=== PATIENT | female | born 1970 | race Caucasian/White ===

== ENCOUNTER 2016-09-21 10:49 | Emergency (ER) | payer OTHER ==
[~2016-09-21] VITALS: Ht 165.1 cm; Wt 63.5 kg
[2016-09-21] MEDS ORDERED: IV NORMAL SALINE 1000ML BAG 1,000 ML IV SCH (12:44)
[2016-09-21] MEDS ORDERED: FENTANYL PF 100 MCG/2 ML VIAL. IV PRN (12:45)
[2016-09-21] MEDS ORDERED: ONDANSETRON PF 4 MG/2 ML VIAL. IV ONE (12:45)
--- NOTE | 2016-09-21 12:50 | PHYS DOC ---
Past Medical History Past Medical History: Asthma, Constipation, Hypertension, [place], Other Additional Past Medical Histor: MS,LUPUS Past Surgical History: Cholecystectomy, Other Additional Past Surgical Histo: UTEERINE ABLATION Additional Information: 0.25 PPD Alcohol Use: Rarely Drug Use: None Adult General Chief Complaint Chief Complaint: CONSTIPATION HPI HPI Patient is a 45 year old female who presents with complaint of left-sided abdominal pain. Patient states that her pain has been present intermittently over the past 2 weeks, however over the past 2-3 days her symptoms have been worsening. Patient is also noticed low back pain associated with her symptoms. Patient currently states her pain is 8 out of 10. The patient states that she has a history of constipation and has had similar episodes in the past, however she has not had associated back pain with her symptoms until now. Patient also states that she has history of hypertension and states that she was recently diagnosed with lupus. Patient has followed with rheumatology at and states that currently they are doing additional testing before starting any treatment. Patient denies any associated fever, shortness of breath, or bloody stools with her current symptoms. Patient does have nausea. Patient has not taken any medications to help with symptoms currently. Review of Systems Review of Systems Constitutional: Denies fever or chills [] Eyes: Denies change in visual acuity, redness, or eye pain [] HENT: Denies nasal congestion or sore throat [] Respiratory: Denies cough or shortness of breath [] Cardiovascular: No additional information not addressed in HPI [] GI: Abdominal pain, nausea, denies vomiting, bloody stools or diarrhea [] : Denies dysuria or hematuria [] Musculoskeletal: Back pain [] Integument: Denies rash or skin lesions [] Neurologic: Denies headache, focal weakness or sensory changes [] Current Medications Current Medications Current Medications Medications (Trade) Dose Ordered Sig/Edmund Start Time Stop Time Status Last Admin Dose Admin Fentanyl Citrate 50 mcg 50 mcg PRN Q15MIN PRN 09/21/16 12:45 09/22/16 12:44 09/21/16 13:14 50 MCG Info (Do NOT chart on this entry -- for MONITORING) 1 each PRN DAILY PRN 09/21/16 13:15 09/23/16 13:14 Iohexol (Omnipaque 300 Mg/ml) 75 ml 1X ONCE 09/21/16 13:15 09/21/16 13:16 DC 09/21/16 13:31 75 ML Ondansetron HCl (Zofran) 4 mg 1X ONCE 09/21/16 12:45 09/21/16 12:48 DC 09/21/16 13:14 4 MG Sodium Chloride (Iv Sodium Chloride 0.9% 1000ml Bag) 1,000 ml @ 1,000 mls/hr Q1H 09/21/16 12:44 09/21/16 13:43 DC 09/21/16 13:12 1,000 MLS/HR Allergies Allergies Allergies Coded Allergies Type Severity Reaction Last Updated Verified morphine Allergy Mild RASH,ITCHES 09/21/16 Yes Physical Exam Physical Exam Constitutional: Alert, afebrile, appears in mild to moderate discomfort [] HENT: Normocephalic, atraumatic, bilateral external ears normal, oropharynx moist, no oral exudates, nose normal. [] Eyes: PERRLA, EOMI, conjunctiva normal, no discharge. [] Neck: Normal range of motion, no tenderness, supple, no stridor. [] Cardiovascular:Heart rate regular rhythm, no murmur [] Lungs & Thorax: Bilateral breath sounds clear to auscultation [] Abdomen: Bowel sounds normal, soft, left upper and lower quadrant tenderness to palpation with guarding, no rebound tenderness, no masses, no pulsatile masses. [] Skin: Warm, dry, no erythema, no rash. [] Back: Bilateral lower lumbar paraspinous muscle tenderness to palpation, no midline tenderness, no CVA tenderness. [] Extremities: No tenderness, no cyanosis, no clubbing, ROM intact, no edema. [] Neurologic: Alert and oriented X 3, normal motor function, normal sensory function, no focal deficits noted. [] Current Patient Data Vital Signs Vital Signs Date Time Temp Pulse Resp B/P Pulse Ox O2 Delivery O2 Flow Rate FiO2 09/21/16 13:14 14 100 Room Air 09/21/16 13:09 178/104 09/21/16 12:24 72 09/21/16 11:58 98 98.0 Lab Values Laboratory Tests Test 09/21/16 13:00 09/21/16 13:11 White Blood Count 12.0x10^3/uL (4.0-11.0) H Red Blood Count 4.95x10^6/uL (3.50-5.40) Hemoglobin 14.8g/dL (12.0-15.5) Hematocrit 45.3% (36.0-47.0) Mean Corpuscular Volume 92fL (79-100) Mean Corpuscular Hemoglobin 30pg (25-35) Mean Corpuscular Hemoglobin Concent 33g/dL (31-37) Red Cell Distribution Width 13.2% (11.5-14.5) Platelet Count 109x10^3/uL (140-400) L Neutrophils (%) (Auto) 65% (31-73) Lymphocytes (%) (Auto) 23% (24-48) L Monocytes (%) (Auto) 8% (0-9) Eosinophils (%) (Auto) 3% (0-3) Basophils (%) (Auto) 1% (0-3) Neutrophils # (Auto) 7.8x10^3uL (1.8-7.7) H Lymphocytes # (Auto) 2.8x10^3/uL (1.0-4.8) Monocytes # (Auto) 1.0x10^3/uL (0.0-1.1) Eosinophils # (Auto) 0.3x10^3/uL (0.0-0.7) Basophils # (Auto) 0.1x10^3/uL (0.0-0.2) Sodium Level 141mmol/L (136-145) Potassium Level 4.0mmol/L (3.5-5.1) Chloride Level 104mmol/L (98-107) Carbon Dioxide Level 27mmol/L (21-32) Anion Gap 10 (6-14) Blood Urea Nitrogen 11mg/dL (7-20) Creatinine 0.8mg/dL (0.6-1.0) Estimated GFR (Cockcroft-Gault) 77.6 BUN/Creatinine Ratio 14 (6-20) Glucose Level 92mg/dL (70-99) Calcium Level 9.2mg/dL (8.5-10.1) Total Bilirubin 0.1mg/dL (0.2-1.0) L Aspartate Amino Transferase (AST) 15U/L (15-37) Alanine Aminotransferase (ALT) 16U/L (14-59) Alkaline Phosphatase 99U/L (46-116) Total Protein 7.5g/dL (6.4-8.2) Albumin 3.8g/dL (3.4-5.0) Albumin/Globulin Ratio 1.0 (1.0-1.7) Lipase 219U/L (73-393) Urine Collection Type Void Urine Color Yellow Urine Clarity Cloudy Urine pH 6.0 Urine Specific [place] 1.025 Urine Protein Negativemg/dL (NEG-TRACE) Urine Glucose (UA) Negativemg/dL (NEG) Urine Ketones (Stick) Negativemg/dL (NEG) Urine Blood Small (NEG) Urine Nitrite Negative (NEG) Urine Bilirubin Negative (NEG) Urine Urobilinogen Dipstick 1.0mg/dL (0.2 mg/dL) Urine Leukocyte Esterase Negative (NEG) Urine RBC 3-5/HPF (0-2) Urine WBC 1-4/HPF (0-4) Urine Squamous Epithelial Cells Many/LPF Urine Bacteria Many/HPF (0-FEW) Urine Mucus Marked/LPF Laboratory Tests 09/21/16 13:00 Laboratory Tests 09/21/16 13:00 EKG EKG Not performed [] Radiology/Procedures Radiology/Procedures [facility] [address] [place] [address] IMAGING REPORT Signed PATIENT: JUAN PABLO WINKLER ACCOUNT: [id number] : 1970 LOCATION: ER AGE: 45 SEX: F EXAM STATUS: REG ER ORD. PHYSICIAN: SUBHASH COLES MD REASON: left lower quadrant abdominal pain PROCEDURE: ABD PELV W/ IV CONTRAST ONLY EXAM: CT abdomen/pelvis with contrast. HISTORY: Left lower quadrant pain and nausea. TECHNIQUE: Computed tomography of the abdomen and pelvis was performed after the intravenous administration of 75 mL Omnipaque 300. COMPARISON: 12/16/2012. FINDINGS: Lung windows through the visualized portions of the bases reveal mild atelectasis. Bone windows reveal subacute left anteroinferior rib fractures. There are no suspicious lesions. The common duct is mildly dilated at 8 mm. There is no clear distal obstructing lesion. The gallbladder is surgically absent. The pancreas and pancreatic duct are unremarkable. The liver, spleen, adrenal glands and left kidney are unremarkable. There are small cysts in the right kidney. There are no pathologically enlarged lymph nodes. Stool throughout the colon is consistent with constipation. The appendix is not inflamed. There is no obstruction. Bilateral ovarian follicles measuring up to 2.7 cm on the right. IMPRESSION: 1. Stool throughout the colon is consistent with constipation. 2. Subacute left anteroinferior rib fractures. 3. Mild extrahepatic biliary dilatation status post cholecystectomy. Correlate for cholestasis to assess significance. *One or more of the following individualized dose reduction techniques were utilized for this examination: 1. Automated exposure control. 2. Adjustment of the mA and/or kV according to patient size. 3. Use of iterative reconstruction technique. DICTATED and SIGNED BY: SERGIO HUBER MD DATE: 09/21/16 [id number] CC: SUBHASH COLES MD; REINA AMBROSIO APRN ~ [] Course & Med Decision Making Course & Med Decision Making Pertinent Labs and Imaging studies reviewed. (See chart for details) Patient was treated with IV fluids, Zofran, fentanyl. Patient's CT scan did not reveal an acute surgical process causing the patient's abdominal pain but did show a moderate amount of retained stool in colon. The scan did show evidence of left-sided bebo-inferior rib fractures. Patient states that she fell 3 months ago and likely suffered the injury at that time. Patient denies any recent falls. Patient received a milk and molasses enema in the emergency department with partial return of stool. Patient states that she feels better at this time and would like to go home. The patient states that she will start on MiraLAX therapy at home and I recommended that patient attempt Fleet enemas as needed at home to help improve with stool output. The patient will be referred to Dr. Earl for follow-up in one week. Advised return emergency department for any worsening symptoms. Patient voiced understanding and in agreement with treatment plan. Dragon Disclaimer Dragon Disclaimer This electronic medical record was generated, in whole or in part, using a voice recognition dictation system. Departure Departure Impression: Primary Impression: Constipation Additional Impression: Abdominal pain Disposition: HOME, SELF-CARE Condition: IMPROVED Referrals: REINA AMBROSIO APRN (PCP) JANNY EARL MD Patient Instructions: Abdominal Pain (Nonspecific), Constipation, Adult Additional Instructions: Follow-up in one week with Dr. Earl. You may use [id number] Tylenol and ibuprofen as needed for symptoms. You may also use Fleet enemas available for purchase [id number] to use as instructed on packaging for treatment of constipation. Continue with a liquid diet at this time until your stool output has improved. Return to the emergency department for any worsening symptoms. Problem Qualifiers Primary Impression: Constipation Constipation type: unspecified constipation type Qualified Code: K59.00 - Constipation, unspecified Additional Impression: Abdominal pain Abdominal location: left lower quadrant Qualified Code: R10.32 - Left lower quadrant pain SUBHASH COLES MD Sep 21, 2016 12:50
[2016-09-21 13:15] LABS: BASO # 0.1 x10^3/uL (0.0-0.2); BASO % 1 % (0-3); EOS % 3 % (0-3); HEMATOCRIT 45.3 % (36.0-47.0); HEMOGLOBIN 14.8 g/dL (12.0-15.5); LYMPH # 2.8 x10^3/uL (1.0-4.8); LYMPH % 23 % (24-48); MEAN CORPUSCULAR HEMOGLOBIN 30 pg (25-35); MEAN CORPUSCULAR HGB CONC 33 g/dL (31-37); MEAN CORPUSCULAR VOLUME 92 fL (79-100); MONO % 8 % (0-9); NEUT % 65 % (31-73); PLATELET COUNT 109 x10^3/uL (140-400); RED BLOOD COUNT 4.95 x10^6/uL (3.50-5.40); RED CELL DISTRIBUTION WIDTH 13.2 % (11.5-14.5)
[2016-09-21] MEDS ORDERED: CONTRAST GIVEN MC PRN (13:15)
[2016-09-21] MEDS ORDERED: IOHEXOL 300 MG/ML 75 ML VIAL IV ONE (13:15)
[2016-09-21 13:23] LABS: BILIRUBIN,URINE NEGATIVE (NEG); GLUCOSE,URINE NEGATIVE (NEG); NITRITE,URINE NEGATIVE (NEG); PROTEIN,URINE NEGATIVE (NEG-TRACE)
[2016-09-21 13:25] LABS: CALCIUM 9.2 mg/dL (8.5-10.1); CREATININE 0.8 mg/dL (0.6-1.0); GFR 77.6
[2016-09-21 13:30] LABS: ALBUMIN 3.8 g/dL (3.4-5.0); TOTAL BILIRUBIN 0.1 mg/dL (0.2-1.0); TOTAL PROTEIN 7.5 g/dL (6.4-8.2)
[2016-09-21 13:33] LABS: BACTERIA,URINE MANY /HPF (0-FEW); SQUAMOUS EPITHELIAL CELL,UR MANY /LPF
--- NOTE | 2016-09-21 14:06 | RAD ---
EXAM: CT abdomen/pelvis with contrast. HISTORY: Left lower quadrant pain and nausea. TECHNIQUE: Computed tomography of the abdomen and pelvis was performed after the intravenous administration of 75 mL Omnipaque 300. COMPARISON: 12/16/2012. FINDINGS: Lung windows through the visualized portions of the bases reveal mild atelectasis. Bone windows reveal subacute left anteroinferior rib fractures. There are no suspicious lesions. The common duct is mildly dilated at 8 mm. There is no clear distal obstructing lesion. The gallbladder is surgically absent. The pancreas and pancreatic duct are unremarkable. The liver, spleen, adrenal glands and left kidney are unremarkable. There are small cysts in the right kidney. There are no pathologically enlarged lymph nodes. Stool throughout the colon is consistent with constipation. The appendix is not inflamed. There is no obstruction. Bilateral ovarian follicles measuring up to 2.7 cm on the right. IMPRESSION: 1. Stool throughout the colon is consistent with constipation. 2. Subacute left anteroinferior rib fractures. 3. Mild extrahepatic biliary dilatation status post cholecystectomy. Correlate for cholestasis to assess significance. *One or more of the following individualized dose reduction techniques were utilized for this examination: 1. Automated exposure control. 2. Adjustment of the mA and/or kV according to patient size. 3. Use of iterative reconstruction technique.
[2016-09-21 16:14] VITALS: BP 175/96
== END 2016-09-21 16:47 | disposition home or self-care (01) ==
LOC: ER 10:49
DX: K59.00 Constipation, unspecified (principal); J45.909 Unspecified asthma, uncomplicated; I10 Essential (primary) hypertension; I25.2 Old myocardial infarction; G35 Multiple sclerosis; Z90.49 Acquired absence of other specified parts of digestive tract; Z88.5 Allergy status to narcotic agent
CPT/HCPCS: 36415; 74177; 80053; 81001; 83690; 85027; 87086; 96361; 96374; 96375; 99285; J2405; J3010; J7030; Q9967

== ENCOUNTER 2018-07-16 23:17 | Emergency (ER) | payer OTHER ==
[~2018-07-16] VITALS: Ht 165.1 cm; Wt 59.0 kg
[2018-07-16 23:36] LABS: BILIRUBIN,URINE NEGATIVE (NEG); CLARITY,URINE CLEAR; COLOR,URINE YELLOW; NITRITE,URINE NEGATIVE (NEG); PH,URINE 6.5; PROTEIN,URINE NEGATIVE (NEG-TRACE)
[2018-07-16 23:44] LABS: BACTERIA,URINE 0 /HPF (0-FEW); RBC,URINE >40 /HPF (0-2); SQUAMOUS EPITHELIAL CELL,UR OCC /LPF; WBC,URINE 0 /HPF (0-4)
[2018-07-16] MEDS ORDERED: TAMSULOSIN 0.4 MG CAP.ER.24H. PO ONE (23:45)
[2018-07-16] MEDS ORDERED: fentaNYL PF VIAL 100 MCG/2 ML VIAL IV ONE (23:45)
[2018-07-16] MEDS ORDERED: KETOROLAC 30 MG/ML VIAL. IV ONE (23:45)
[2018-07-16] MEDS ORDERED: ONDANSETRON PF 4 MG/2 ML VIAL. IV ONE (23:45)
--- NOTE | 2018-07-16 23:48 | PHYS DOC ---
Past Medical History Past Medical History: Asthma, Constipation, Hypertension, [place], Other Additional Past Medical Histor: MS,LUPUS Past Surgical History: Cholecystectomy, Other Additional Past Surgical Histo: UTEERINE ABLATION Alcohol Use: Rarely Drug Use: None Adult General Chief Complaint Chief Complaint: FLANK PAIN HPI HPI Patient is a 47 year old female with history of hypertension, NM, who presents today with 10 out of 10 right flank pain with nausea that began at 6 PM this evening. Patient denies any fever. Denies any urgency frequency dysuria, denies any hematuria, denies any personal history of kidney stones. Review of Systems Review of Systems Constitutional: Denies fever or chills [] Eyes: Denies change in visual acuity, redness, or eye pain [] HENT: Denies nasal congestion or sore throat [] Respiratory: Denies cough or shortness of breath [] Cardiovascular: No additional information not addressed in HPI [] GI: Denies abdominal pain, nausea, vomiting, bloody stools or diarrhea [] : Reports right flank pain. Denies dysuria or hematuria [] Musculoskeletal: Denies back pain or joint pain [] Integument: Denies rash or skin lesions [] Neurologic: Denies headache, focal weakness or sensory changes [] All other systems were reviewed and found to be within normal limits, except as documented in this note. Current Medications Current Medications Current Medications Medications (Trade) Dose Ordered Sig/Edmund Start Time Stop Time Status Last Admin Dose Admin Fentanyl Citrate (Fentanyl 2ml Vial) 50 mcg 1X ONCE 07/16/18 23:45 07/16/18 23:46 DC 07/17/18 00:02 50 MCG Ketorolac Tromethamine (Toradol 30mg Vial) 30 mg 1X ONCE 07/16/18 23:45 07/16/18 23:46 DC 07/17/18 00:01 30 MG Ondansetron HCl (Zofran) 4 mg 1X ONCE 07/16/18 23:45 07/16/18 23:46 DC 07/17/18 00:01 4 MG Tamsulosin HCl (Flomax) 0.4 mg 1X ONCE 07/16/18 23:45 07/16/18 23:46 DC 07/17/18 00:00 0.4 MG Allergies Allergies Allergies Coded Allergies Type Severity Reaction Last Updated Verified morphine Allergy Mild RASH,ITCHES 09/21/16 Yes Physical Exam Physical Exam Constitutional: Well developed, well nourished, no acute distress, non-toxic appearance. [] HENT: Normocephalic, atraumatic, bilateral external ears normal, oropharynx moist, no oral exudates, nose normal. [] Eyes: PERRLA, EOMI, conjunctiva normal, no discharge. [] Neck: Normal range of motion, no tenderness, supple, no stridor. [] Cardiovascular:Heart rate regular rhythm, no murmur [] Lungs & Thorax: Bilateral breath sounds clear to auscultation [] Abdomen: Bowel sounds normal, soft, no tenderness, no masses, no pulsatile masses. [] Skin: Warm, dry, no erythema, no rash. [] Back: No tenderness, mild right CVA tenderness. [] Extremities: No tenderness, no cyanosis, no clubbing, ROM intact, no edema. [] Neurologic: Alert and oriented X 3, normal motor function, normal sensory function, no focal deficits noted. [] Psychologic: Affect normal, judgement normal, mood normal. [] Current Patient Data Vital Signs Vital Signs Date Time Temp Pulse Resp B/P (MAP) Pulse Ox O2 Delivery O2 Flow Rate FiO2 07/17/18 00:35 20 100 Room Air 07/16/18 23:19 97.1 73 175/107 (129) 97.1 Lab Values Laboratory Tests Test 07/16/18 23:20 07/16/18 23:26 07/16/18 23:45 Urine Collection Type Unknown Urine Color Yellow Urine Clarity Clear Urine pH 6.5 Urine Specific [place] 1.020 Urine Protein Negative mg/dL (NEG-TRACE) Urine Glucose (UA) Negative mg/dL (NEG) Urine Ketones (Stick) Negative mg/dL (NEG) Urine Blood Large (NEG) Urine Nitrite Negative (NEG) Urine Bilirubin Negative (NEG) Urine Urobilinogen Dipstick 1.0 mg/dL (0.2 mg/dL) Urine Leukocyte Esterase Negative (NEG) Urine RBC >40 /HPF (0-2) Urine WBC 0 /HPF (0-4) Urine Squamous Epithelial Cells Occ /LPF Urine Bacteria 0 /HPF (0-FEW) Urine Opiates Screen Neg (NEG) Urine Methadone Screen Neg (NEG) Urine Barbiturates Neg (NEG) Urine Phencyclidine Screen Neg (NEG) Urine Amphetamine/Methamphetamine Pos (NEG) Urine Benzodiazepines Screen Neg (NEG) Urine Cocaine Screen Neg (NEG) Urine Cannabinoids Screen Neg (NEG) Urine Ethyl Alcohol Neg (NEG) POC Urine HCG, Qualitative Hcg negative (Negative) White Blood Count 14.2 x10^3/uL (4.0-11.0) H Red Blood Count 4.70 x10^6/uL (3.50-5.40) Hemoglobin 14.6 g/dL (12.0-15.5) Hematocrit 42.2 % (36.0-47.0) Mean Corpuscular Volume 90 fL (79-100) Mean Corpuscular Hemoglobin 31 pg (25-35) Mean Corpuscular Hemoglobin Concent 35 g/dL (31-37) Red Cell Distribution Width 13.0 % (11.5-14.5) Platelet Count 103 x10^3/uL (140-400) L Neutrophils (%) (Auto) 79 % (31-73) H Lymphocytes (%) (Auto) 11 % (24-48) L Monocytes (%) (Auto) 9 % (0-9) Eosinophils (%) (Auto) 2 % (0-3) Basophils (%) (Auto) 0 % (0-3) Neutrophils # (Auto) 11.2 x10^3uL (1.8-7.7) H Lymphocytes # (Auto) 1.5 x10^3/uL (1.0-4.8) Monocytes # (Auto) 1.2 x10^3/uL (0.0-1.1) H Eosinophils # (Auto) 0.2 x10^3/uL (0.0-0.7) Basophils # (Auto) 0.0 x10^3/uL (0.0-0.2) Sodium Level 136 mmol/L (136-145) Potassium Level 3.5 mmol/L (3.5-5.1) Chloride Level 98 mmol/L (98-107) Carbon Dioxide Level 26 mmol/L (21-32) Anion Gap 12 (6-14) Blood Urea Nitrogen 8 mg/dL (7-20) Creatinine 0.7 mg/dL (0.6-1.0) Estimated GFR (Cockcroft-Gault) 89.7 BUN/Creatinine Ratio 11 (6-20) Glucose Level 111 mg/dL (70-99) H Calcium Level 9.8 mg/dL (8.5-10.1) Total Bilirubin 0.2 mg/dL (0.2-1.0) Aspartate Amino Transferase (AST) 64 U/L (15-37) H Alanine Aminotransferase (ALT) 79 U/L (14-59) H Alkaline Phosphatase 146 U/L (46-116) H Total Protein 8.9 g/dL (6.4-8.2) H Albumin 4.1 g/dL (3.4-5.0) Albumin/Globulin Ratio 0.9 (1.0-1.7) L Lipase 152 U/L (73-393) Ethyl Alcohol Level < 10 mg/dL (0-10) Laboratory Tests 07/16/18 23:45 Laboratory Tests 07/16/18 23:45 EKG EKG [] Radiology/Procedures Radiology/Procedures CT abdomen and pelvis without contrast: Reason for examination: Right flank pain for a few hours. Helical images were obtained through the abdomen pelvis with no intravenous or oral contrast. Reconstruction was performed in sagittal and coronal planes. Exposure: One or more of the following individualized dose reduction techniques were utilized for this examination: 1. Automated exposure control 2. Adjustment of the mA and/or kV according to patient size 3. Use of iterative reconstruction technique. The lung bases show some linear atelectasis at the right posterior costophrenic angle. The heart size is normal with no pericardial effusion evident. No focal abnormality seen at the liver, spleen, adrenal glands or pancreas. The gallbladder surgically absent. The abdominal aorta and inferior vena cava show no gross abnormalities. No abnormality seen at the appendix. The intestinal tract shows no abnormally dilated loops of bowel or thickened bowel johnson. There is no evidence of diverticulosis or diverticulitis. No bowel obstruction is evident. No abnormality seen at the stomach. The left kidney shows a nonobstructing calculus at the lower pole with no hydronephrosis or evidence of obstructive uropathy. The right kidney however shows moderate hydronephrosis which appears to be due to a calcification at the right ureteral vesicle junction measuring approximately 4 mm in size. Bladder is not distended. No abnormality seen at the uterus. Bilaterally there appear to be hypodense lesions in the ovaries with the right ovary showing a 3.7 x 4.5 cm lesion in the left ovary showing a 2.4 x 2.4 centimeters lesion which probably represents cysts. No significant free fluid is identified. No acute bony abnormalities are evident. IMPRESSION: Moderate right hydronephrosis which appears to be due to a 4 mm calculus at the right ureterovesical junction. Bilateral hypodense lesion at the ovaries measuring 4.5 cm on the right and 2.4 cm in greatest dimension on the left which probably represents cysts.[] Course & Med Decision Making Course & Med Decision Making Pertinent Labs and Imaging studies reviewed. (See chart for details) This is a 47-year-old female patient presenting to the ED today with a right flank pain with nausea that began at 6 PM. No history of kidney stones. Urine analysis is noted for large amount of blood, no leukocytes, no nitrates. CBC with a WBC of 14.2, CMP with AST of 64, ALT of 79, ALK 146. 00:[address] Jamal Berry's note Received patient at 0056, agree with previous H&P. Patient did receive pain relief with the medications administered. Given that the stone is 4 mm in size at the UVJ and renal function appears intact, will attempt to treat this as an outpatient. No evidence of an infected stone. No evidence of by mouth intolerance. Dragon Disclaimer Dragon Disclaimer This electronic medical record was generated, in whole or in part, using a voice recognition dictation system. Departure Departure Impression: Primary Impression: Right flank pain Additional Impression: Kidney stone Disposition: 01 HOME, SELF-CARE Condition: GOOD Referrals: REINA AMBROSIO APRN (PCP) Follow-up in 2 days Patient Instructions: Diet for Kidney Stones, Kidney Stones Additional Instructions: Drink plenty of fluids. Follow-up with your regular doctor in 2 days. Strain your urine to collect the stone and bring it with you to your doctors for further analysis. Take your medication as prescribed. Do not use any drugs or medicines that are not prescribed for you. Return to the ER if worsening pain, unable to tolerate oral intake, or any other concerns. Scripts Ondansetron Hcl (ZOFRAN) 4 Mg Tablet 4 MG PO PRN TID PRN for NAUSEA/VOMITING, #15 nausea/vomiting Prov: LEELA BERRY DO 07/17/18 Hydrocodone/Apap 5-325 (NORCO 5-325 TABLET) 1 Each Tablet 1-2 EACH PO PRN Q6HRS PRN for PAIN, #15 as needed for pain Prov: LEELA BERRY DO 07/17/18 Tamsulosin Hcl (FLOMAX) 0.4 Mg Cap.er.24h 0.4 MG PO DAILY for 10 Days, #10 TAB Prov: LEELA BERRY DO 07/17/18 Meloxicam (MELOXICAM) 7.5 Mg Tablet 7.5 MG PO DAILY, #20 TAB Prov: LEELA BERRY DO 07/17/18 Problem Qualifiers STEFANO GAGE APRN Jul 16, 2018 23:48 LEELA BERRY DO Jul 17, 2018 01:20
[2018-07-17] LABS: BASO % 0 % (0-3); EOS # 0.2 x10^3/uL (0.0-0.7); EOS % 2 % (0-3); HEMATOCRIT 42.2 % (36.0-47.0); HEMOGLOBIN 14.6 g/dL (12.0-15.5); LYMPH # 1.5 x10^3/uL (1.0-4.8); LYMPH % 11 % (24-48); MEAN CORPUSCULAR HEMOGLOBIN 31 pg (25-35); MEAN CORPUSCULAR HGB CONC 35 g/dL (31-37); MEAN CORPUSCULAR VOLUME 90 fL (79-100); MONO # 1.2 x10^3/uL (0.0-1.1); MONO % 9 % (0-9); NEUT # 11.2 x10^3uL (1.8-7.7); NEUT % 79 % (31-73); PLATELET COUNT 103 x10^3/uL (140-400); WHITE BLOOD COUNT 14.2 x10^3/uL (4.0-11.0)
[2018-07-17 00:14] LABS: CALCIUM 9.8 mg/dL (8.5-10.1); CREATININE 0.7 mg/dL (0.6-1.0); GFR 89.7; POTASSIUM 3.5 mmol/L (3.5-5.1)
[2018-07-17 00:20] LABS: ALBUMIN 4.1 g/dL (3.4-5.0); ALBUMIN/GLOBULIN RATIO 0.9 (1.0-1.7); TOTAL BILIRUBIN 0.2 mg/dL (0.2-1.0); TOTAL PROTEIN 8.9 g/dL (6.4-8.2)
--- NOTE | 2018-07-17 01:07 | RAD ---
CT abdomen and pelvis without contrast: Reason for examination: Right flank pain for a few hours. Helical images were obtained through the abdomen pelvis with no intravenous or oral contrast. Reconstruction was performed in sagittal and coronal planes. Exposure: One or more of the following individualized dose reduction techniques were utilized for this examination: 1. Automated exposure control 2. Adjustment of the mA and/or kV according to patient size 3. Use of iterative reconstruction technique. The lung bases show some linear atelectasis at the right posterior costophrenic angle. The heart size is normal with no pericardial effusion evident. No focal abnormality seen at the liver, spleen, adrenal glands or pancreas. The gallbladder surgically absent. The abdominal aorta and inferior vena cava show no gross abnormalities. No abnormality seen at the appendix. The intestinal tract shows no abnormally dilated loops of bowel or thickened bowel johnson. There is no evidence of diverticulosis or diverticulitis. No bowel obstruction is evident. No abnormality seen at the stomach. The left kidney shows a nonobstructing calculus at the lower pole with no hydronephrosis or evidence of obstructive uropathy. The right kidney however shows moderate hydronephrosis which appears to be due to a calcification at the right ureteral vesicle junction measuring approximately 4 mm in size. Bladder is not distended. No abnormality seen at the uterus. Bilaterally there appear to be hypodense lesions in the ovaries with the right ovary showing a 3.7 x 4.5 cm lesion in the left ovary showing a 2.4 x 2.4 centimeters lesion which probably represents cysts. No significant free fluid is identified. No acute bony abnormalities are evident. IMPRESSION: Moderate right hydronephrosis which appears to be due to a 4 mm calculus at the right ureterovesical junction. Bilateral hypodense lesion at the ovaries measuring 4.5 cm on the right and 2.4 cm in greatest dimension on the left which probably represents cysts. Electronically signed by: Suad Guadarrama MD (07/17/2018 1:03 AM) [facility]
[2018-07-17 01:08] LABS: BARBITURATES NEG (NEG); BENZODIAZEPINES NEG (NEG); CANNABINOIDS NEG (NEG); COCAINE NEG (NEG); METHADONE NEG (NEG); OPIATES NEG (NEG); PHENCYCLIDINE NEG (NEG)
[2018-07-17 01:09] LABS: AMPHETAMINE/METHAMPHETAMINE POS (NEG)
[2018-07-17] MEDS ORDERED: ONDA4TAB7 PO (01:20)
[2018-07-17] MEDS ORDERED: TAMS0.4C97 PO (01:20)
[2018-07-17] MEDS ORDERED: HYDR-3164 PO (01:20)
[2018-07-17] MEDS ORDERED: MELO7.5T29 PO (01:20)
[2018-07-17 01:30] VITALS: BP 177/93
== END 2018-07-17 01:35 | disposition home or self-care (01) ==
LOC: ER 07-17 00:06
DX: N20.0 Calculus of kidney (principal); R11.2 Nausea with vomiting, unspecified; J45.909 Unspecified asthma, uncomplicated; I10 Essential (primary) hypertension; I25.2 Old myocardial infarction; M32.9 Systemic lupus erythematosus, unspecified; Z90.49 Acquired absence of other specified parts of digestive tract; Z88.5 Allergy status to narcotic agent
CPT/HCPCS: 36415; 74176; 80053; 80307; 81001; 81025; 83690; 85025; 96374; 96375; 99284; G0480; J1885; J2405; J3010